=== PATIENT | male | born 1965 | race Caucasian/White ===

== ENCOUNTER 2020-02-14 00:26 | Inpatient (IN) ==
[2020-02-14] MEDS ORDERED: Dextrose Gel 15 GM/37.5 ML TUBE PO PRN ×2 (02:53)
[2020-02-14] MEDS ORDERED: D5% in Water 1,000 ML IVC PRN (02:53)
[2020-02-14] MEDS ORDERED: *HR* Dextrose 50 % in Water (Vial) 50 ML VIAL IVP PRN (02:53)
[2020-02-14] MEDS ORDERED: Ondansetron ODT 4 MG TAB.RAPDIS SL PRN (04:17)
[2020-02-14] MEDS ORDERED: Naloxone 0.4 MG/ML INJ IVP PRN (04:17)
[2020-02-14] MEDS ORDERED: 0.9 % Sodium Chloride 500 ML IVC ONE (04:20)
[2020-02-14] MEDS: Insulin LISPRO 300 UNITS/3 ML VIAL SQ SCH ×3 (07:37→16:58)
[2020-02-14] MEDS ORDERED: *HR* Dextrose 50 % in Water (Vial) 50 ML VIAL IVP ONE ×2 (16:23→16:26)
[2020-02-14] MEDS ORDERED: D5% in Lactated Ringers 1,000 ML IVC SCH (16:30)
[2020-02-14] MEDS: *HR* Heparin 5,000 UNIT/ML VIAL SQ SCH ×2 (17:03→21:08)
[2020-02-14] MEDS: D5% in Water 1,000 ML IVC SCH (17:05)
[2020-02-15] MEDS: Acetaminophen 325 MG TABLET PO PRN ×2 (03:29→16:50)
[2020-02-15] MEDS: *HR* Heparin 5,000 UNIT/ML VIAL SQ SCH ×2 (05:53→14:11)
[2020-02-15 06:43] LABS: Basophils % 0.2 %; Hematocrit 35.8 % (37.5-50.1); Hemoglobin 11.7 g/dL (12.9-16.9); Immature Granulocytes % 0.7 % (0-4); Lymphocytes # 0.9 K/mcL (0.6-4.6); Lymphocytes % 22.2 %; Mean Corpuscular HGB Conc 32.7 g/dL (31.6-35.5); Mean Corpuscular Hemoglobin 30.2 pg (28.0-33.3); Mean Corpuscular Volume 92.5 fL (83.0-100.0); Mean Platelet Volume 10.6 fL (9.4-12.4); Monocytes # 0.3 K/mcL (0.0-1.3); Monocytes % 7.3 %; Neutrophils # 2.9 K/mcL (1.6-8.9); Platelet Count 245 K/mcL (140-400); Red Blood Count 3.87 M/mcL (4.19-5.50); Red Cell Distribution Width 15.9 % (11.5-14.5); Segmented Neutrophils % 69.6 %; White Blood Count 4.2 K/mcL (4.3-11.1)
[2020-02-15 06:48] LABS: INR 1.4; Prothrombin Time 16.3 Seconds (9.4-12.1)
[2020-02-15 07:02] LABS: Alanine Aminotransferase 62 Units/L (7-52); Albumin 3.6 g/dL (3.5-5.7); Alkaline Phosphatase 91 Units/L (34-104); Aspartate Amino Transferase 155 Units/L (13-39); BUN/Creatinine Ratio 15 (6-26); Bilirubin,Total 0.7 mg/dL (0.3-1.0); Blood Urea Nitrogen 19 mg/dL (6-20); Calcium 8.7 mg/dL (8.6-10.3); Carbon Dioxide 20 mEq/L (23-29); Chloride 103 mEq/L (98-107); Globulin 3.6 g/dL (2.4-3.5); Glucose 156 mg/dL (70-105); Magnesium 1.6 mg/dL (1.6-2.6); Osmolality,Calculated 281 (280-300); Phosphorous 2.5 mg/dL (2.7-4.5); Sodium 133 mEq/L (136-145); Total Protein 7.2 g/dL (6.4-8.9); eGFR For African Americans > 60 (> 60); eGFR For Non-African Americans 60 (> 60)
[2020-02-15] MEDS: D5% in Water 1,000 ML IVC SCH (07:39)
[2020-02-15] MEDS: Insulin LISPRO 300 UNITS/3 ML VIAL SQ SCH ×3 (07:39→16:36)
[2020-02-15] MEDS ORDERED: D5% in Lactated Ringers 1,000 ML IVC SCH (13:00)
[2020-02-15 15:27] LABS: Bacteria,Urine Moderate per hpf (None-Few); Bilirubin,Urine Negative (Negative); Blood,Urine Small (Negative); Clarity,Urine Turbid (Clear); Color,Urine Yellow (Yellow); Glucose,Urine (UA) Normal (Normal); Hyaline Casts,Urine Few per lpf (None Seen); Ketones,Urine Negative (Negative); Leukocyte Esterase,Urine Trace (Negative); Mucus,Urine Few per lpf (None-Few); Nitrite,Urine Negative (Negative); Protein,Urine 50 mg/dL (Neg-Trace); Specific Gravity,Urine 1.021 (1.010-1.025); Squamous Epithelial Cell,Urine Few per hpf (None-Few)
[2020-02-15] MEDS: Dexamethasone 4 MG/ML VIAL IVP SCH (16:50)
[2020-02-15] MEDS: BuPROPion XL (24 HR) 150 MG TABLET PO SCH (17:56)
[2020-02-16] MEDS: *HR* Enoxaparin 40 MG/0.4 ML SYRINGE SQ SCH (05:59)
[2020-02-16] MEDS ORDERED: Furosemide 20 MG/2 ML VIAL IVP ONE (08:52)
[2020-02-16] MEDS: Dexamethasone 4 MG/ML VIAL IVP SCH (10:05)
[2020-02-16] MEDS: Insulin LISPRO 300 UNITS/3 ML VIAL SQ SCH ×3 (10:06→15:55)
[2020-02-16] MEDS: BuPROPion XL (24 HR) 150 MG TABLET PO SCH (10:06)
[2020-02-17] MEDS: *HR* Enoxaparin 40 MG/0.4 ML SYRINGE SQ SCH (05:52)
[2020-02-17] MEDS: Insulin LISPRO 300 UNITS/3 ML VIAL SQ SCH ×3 (08:13→18:16)
[2020-02-17] MEDS: BuPROPion XL (24 HR) 150 MG TABLET PO SCH (08:16)
[2020-02-17] MEDS: Dexamethasone 4 MG/ML VIAL IVP SCH (08:16)
[2020-02-17 10:13] LABS: Hematocrit 40.7 % (37.5-50.1); Hemoglobin 13.2 g/dL (12.9-16.9); Mean Corpuscular HGB Conc 32.4 g/dL (31.6-35.5); Mean Corpuscular Hemoglobin 30.4 pg (28.0-33.3); Mean Corpuscular Volume 93.8 fL (83.0-100.0); Mean Platelet Volume 10.4 fL (9.4-12.4); Platelet Count 321 K/mcL (140-400); Red Blood Count 4.34 M/mcL (4.19-5.50); White Blood Count 10.6 K/mcL (4.3-11.1)
[2020-02-17 10:31] LABS: BUN/Creatinine Ratio 31 (6-26); Blood Urea Nitrogen 38 mg/dL (6-20); Calcium 9.8 mg/dL (8.6-10.3); Carbon Dioxide 22 mEq/L (23-29); Chloride 102 mEq/L (98-107); Glucose 158 mg/dL (70-105); Osmolality,Calculated 292 (280-300); Potassium 4.2 mEq/L (3.5-5.1); Sodium 135 mEq/L (136-145); eGFR For African Americans > 60 (> 60); eGFR For Non-African Americans > 60 (> 60)
[2020-02-18] MEDS: *HR* Enoxaparin 40 MG/0.4 ML SYRINGE SQ SCH (06:11)
[2020-02-18] MEDS: BuPROPion XL (24 HR) 150 MG TABLET PO SCH (08:05)
[2020-02-18] MEDS: Dexamethasone 4 MG/ML VIAL IVP SCH (08:05)
[2020-02-18] MEDS: Insulin LISPRO 300 UNITS/3 ML VIAL SQ SCH ×3 (08:22→16:12)
[2020-02-19] MEDS: *HR* Enoxaparin 40 MG/0.4 ML SYRINGE SQ SCH (05:14)
[2020-02-19] MEDS: Insulin LISPRO 300 UNITS/3 ML VIAL SQ SCH ×3 (07:36→16:59)
[2020-02-19] MEDS: Dexamethasone 4 MG/ML VIAL IVP SCH (07:37)
[2020-02-19] MEDS: BuPROPion XL (24 HR) 150 MG TABLET PO SCH (07:37)
[2020-02-20] MEDS: *HR* Enoxaparin 40 MG/0.4 ML SYRINGE SQ SCH (05:39)
[2020-02-20] MEDS: BuPROPion XL (24 HR) 150 MG TABLET PO SCH (07:47)
[2020-02-20] MEDS: Dexamethasone 4 MG/ML VIAL IVP SCH (07:48)
[2020-02-20] MEDS: Insulin LISPRO 300 UNITS/3 ML VIAL SQ SCH ×3 (08:04→17:42)
[2020-02-21] MEDS: *HR* Enoxaparin 40 MG/0.4 ML SYRINGE SQ SCH (06:03)
[2020-02-21] MEDS: Insulin LISPRO 300 UNITS/3 ML VIAL SQ SCH ×3 (07:40→16:33)
[2020-02-21] MEDS: Dexamethasone 4 MG/ML VIAL IVP SCH (07:45)
[2020-02-21] MEDS: BuPROPion XL (24 HR) 150 MG TABLET PO SCH (07:45)
[2020-02-22] MEDS: *HR* Enoxaparin 40 MG/0.4 ML SYRINGE SQ SCH (04:53)
[2020-02-22] MEDS: Insulin LISPRO 300 UNITS/3 ML VIAL SQ SCH ×3 (09:03→16:25)
[2020-02-22] MEDS: Dexamethasone 4 MG/ML VIAL IVP SCH (09:06)
[2020-02-22] MEDS: BuPROPion XL (24 HR) 150 MG TABLET PO SCH (09:07)
[2020-02-23] MEDS: *HR* Enoxaparin 40 MG/0.4 ML SYRINGE SQ SCH (04:55)
[2020-02-23] MEDS: BuPROPion XL (24 HR) 150 MG TABLET PO SCH (08:31)
[2020-02-23] MEDS: Dexamethasone 4 MG/ML VIAL IVP SCH (08:31)
[2020-02-23] MEDS: Insulin LISPRO 300 UNITS/3 ML VIAL SQ SCH ×3 (08:31→18:09)
[2020-02-24 05:36] VITALS: BP 114/66
[2020-02-24] MEDS: *HR* Enoxaparin 40 MG/0.4 ML SYRINGE SQ SCH (05:38)
[2020-02-24] MEDS: Insulin LISPRO 300 UNITS/3 ML VIAL SQ SCH ×2 (07:30→12:09)
[2020-02-24] MEDS: Dexamethasone 4 MG/ML VIAL IVP SCH (07:34)
[2020-02-24] MEDS: BuPROPion XL (24 HR) 150 MG TABLET PO SCH (07:34)
== END 2020-02-24 14:00 | DRG 137 ==
LOC: 2NENU → SUATTDRO 02-15 16:52
PROVIDERS: ADMIT Internal Medicine; ATTEND Internal Medicine